=== PATIENT | female | born 1995 | race Caucasian/White ===

== ENCOUNTER → 2021-03-08 10:37 | Outpatient (CLI) | payer OTHER, MEDICAID, SELFPAY ==
--- NOTE | 2021-03-08 10:43 | DI.US.S_ITS ---
PROCEDURE: US PELVIC COMPLETE INDICATIONS: DUB TECHNIQUE: Real-time scanning was performed of the pelvic organs, with image documentation. Additional endovaginal scanning was necessary due to incomplete visualization of the adnexal and endometrial structures by transabdominal scanning. COMPARISON: None. FINDINGS: Uterus: The uterus is anteverted measuring 9.7 x 4.8 x 6.4 centimeters. An IUD is visualized and appears to be in good position. Uterine echotexture is normal. Endometrium cannot be measured due to the IUD. Ovaries: Both ovaries have a normal size measuring 3.8 x 2.6 x 3.1 centimeters on the right and 3.8 x 3.4 x 3.0 centimeters on the left. The left ovary has a simple cyst measuring 1.8 x 1.2 x 1.8 centimeters. Other: No pathologic free abdominal or pelvic fluid. IMPRESSION: 1. No acute or significant abnormality. 2. IUD appears to be well position. 3. Simple left ovarian cyst measuring 1.8 x 1.2 x 1.8 centimeters. Dictated by: Randall Andersen M.D. on 03/08/2021 at 12:06 Approved by: Randall Andersen M.D. on 03/08/2021 at 12:09
== END ==
PROVIDERS: PCP Obstetrics & Gynecology; Referring Provider Obstetrics & Gynecology; Visit Provider Obstetrics & Gynecology
DX: N83.209 Unspecified ovarian cyst, unspecified side (principal)
CPT/HCPCS: 76830; 76856